=== PATIENT | male | born 1945 | race Caucasian/White ===

== ENCOUNTER → 2019-02-03 | Outpatient (CLI) | payer BC, OTHER | LOC: HYPER 06:44 | DX: L97.521 Non-pressure chronic ulcer of other part of left foot limited to breakdown of skin (principal); L84 Corns and callosities; L03.031 Cellulitis of right toe; L60.0 Ingrowing nail; M20.011 Mallet finger of right finger(s); M77.41 Metatarsalgia, right foot; M77.42 Metatarsalgia, left foot; M20.12 Hallux valgus (acquired), left foot; Z79.01 Long term (current) use of anticoagulants; Z86.711 Personal history of pulmonary embolism; Z87.891 Personal history of nicotine dependence ==

== ENCOUNTER → 2019-02-16 | Outpatient (CLI) | payer BC, OTHER | LOC: HYPER 06:38 | DX: L97.521 Non-pressure chronic ulcer of other part of left foot limited to breakdown of skin (principal); M20.12 Hallux valgus (acquired), left foot; L84 Corns and callosities; L03.031 Cellulitis of right toe; M20.011 Mallet finger of right finger(s); M77.41 Metatarsalgia, right foot; M77.42 Metatarsalgia, left foot; L60.0 Ingrowing nail; Z79.01 Long term (current) use of anticoagulants; Z86.711 Personal history of pulmonary embolism; Z87.891 Personal history of nicotine dependence ==

== ENCOUNTER → 2020-10-04 | Outpatient (CLI) | payer OTHER | LOC: SJCVCIMAG 07:42 | PROVIDERS: ATTEND Internal Medicine | DX: I25.10 Atherosclerotic heart disease of native coronary artery without angina pectoris (principal); I49.3 Ventricular premature depolarization; Z79.899 Other long term (current) drug therapy; Z87.891 Personal history of nicotine dependence ==